=== PATIENT | female | born 1995 ===

== ENCOUNTER 2017-10-16 18:46 | Emergency (ER) | payer OTHER ==
[2017-10-16 19:08] VITALS: BP 108/64; PULSE 84; RESP 18; TEMP 98.6; O2SAT 99
--- NOTE | 2017-10-16 19:08 | C.PDOC ---
History Of Present Illness 22 year old female presents to the ED complaining of nasal congestion with associated symptoms of sneezing, rhinorrhea, itchy throat and cough for the past few days. Patient denies any fever, chills, dizziness, or headache. Time Seen by Provider: 10/16/17 19:02 Chief Complaint (Nursing): Cough, Cold, Congestion History Per: Patient History/Exam Limitations: no limitations Onset/Duration Of Symptoms: Days Current Symptoms Are (Timing): Still Present Past Medical History Reviewed: Historical Data, Nursing Documentation, Vital Signs Vital Signs: Last Vital Signs Temp 98.6 F 10/16/17 19:08 Pulse 84 10/16/17 19:08 Resp 18 10/16/17 19:08 BP 108/64 10/16/17 19:08 Pulse Ox 99 10/16/17 19:47 - Medical History PMH: No Chronic Diseases Surgical History: No Surg Hx Family History: States: No Known Family Hx - Social History Hx Alcohol Use: No Hx Substance Use: No Review Of Systems Constitutional: Negative for: Fever, Chills ENT: Positive for: Nose Discharge, Nose Congestion, Other (Itching throat ) Neurological: Negative for: Headache, Dizziness Physical Exam - Physical Exam Appears: Non-toxic, No Acute Distress Skin: Normal Color, Warm, Dry Head: Atraumatic, Normacephalic Eye(s): bilateral: Normal Inspection Ear(s): Bilateral: Normal Nose: Discharge (Clear rhinorrhea ) Oral Mucosa: Moist Throat: No Erythema, No Exudate, Other (Post-nasal drip) Neck: Supple Chest: Symmetrical Cardiovascular: Rhythm Regular, No Murmur, No JVD Respiratory: Normal Breath Sounds, No Rales, No Rhonchi, No Wheezing Extremity: Bilateral: Atraumatic Neurological/Psych: Oriented x3, Normal Speech Gait: Steady ED Course And Treatment O2 Sat by Pulse Oximetry: 99 (RA) Pulse Ox Interpretation: Normal Medical Decision Making Medical Decision Making: Patient with complaints of rhinorrhea and sneezing and itching all c/w allergies. Patient has no clinical signs of bacterial infection. Claritin PO given. Patient advised to take daily antihistamine and nasal spray Disposition Counseled Patient/Family Regarding: Diagnosis, Need For Followup, Rx Given - [facility] Disposition: HOME/ ROUTINE Disposition Time: 19:07 Condition: GOOD Additional Instructions: take daily antihistamine and nasal spray Sterling chawla aung diariamente antihistamnicos y aerosoles nasales Prescriptions: Fluticasone Propionate [Flonase] 1 spray NS DAILY #1 bottle Loratadine [Claritin] 10 mg PO DAILY #30 tab Instructions: Seasonal Allergies (DC) Print Language: FINNISH - POA Present On Arrival: None - Clinical Impression Clinical Impression: Allergic rhinitis - PA / TIP MENDER / Resident Statement MD/DO has reviewed & agrees with the documentation as recorded. - Scribe Statement The provider has reviewed the documentation as recorded by the Scribe (Hellen Beck) All medical record entries made by the Scribe were at my direction and personally dictated by me. I have reviewed the chart and agree that the record accurately reflects my personal performance of the history, physical exam, medical decision making, and the department course for this patient. I have also personally directed, reviewed, and agree with the discharge instructions and disposition.
== END 2017-10-16 19:30 | disposition home or self-care (01) ==
LOC: C.ER 18:46
DX: J30.9 Allergic rhinitis, unspecified (principal)